=== PATIENT | female | born 1960 | race Caucasian/White ===

== ENCOUNTER → 2016-05-13 | Outpatient (CLI) | payer OTHER ==
[~2016-05-13] MED LIST: IOPAMIDOL (ISOVUE-300) 50 ML VIAL IV ONE
--- NOTE | 2016-05-13 17:06 | CT ---
CT Scan of the Chest (With Contrast) Clinical Indications: History of ovarian cancer in a 55-year-old female who has completed chemotherap y several months ago. New onset of left-sided chest pain. Patient's most recent studies from [facility] are not available for comparison at this time. Technique: During power injection of 90 mL Isovue intravenously, a spiral acquisition was performed through the chest. This contrast dose was employed for evaluation of the chest, abdomen and pelvis. A xial images are obtained at 1.25 mm thickness. The examination is reviewed on the workstation at [facility] window/level settings. Sagittal and coronal reformations are performed. Dose reduction technique s were utilized for this examination. Findings: The lungs are clear. Incidentally, there is a small pneumatocele involving the left lower l obe which is unchanged from prior CT scan of the abdomen October 25, 2013. Heart size and pulmonary vasc ularity are normal. There is no pleural or pericardial effusion. There are no masses in the lungs, me diastinum, and pleura. No pneumothorax is seen. The great vessels are normal. The thoracic aorta has a normal contour. No aggressive osseous lesions are identified. Impression: Negative contrast enhanced CT scan of the chest. CT Scan of the Abdomen and Pelvis With Contrast Clinical Indications: History of ovarian cancer in a 55-year-old female who has completed chemotherap y several months ago. New onset of left-sided chest pain. Patient's most recent studies from [facility] are not available for comparison at this time. Technique: Multidetector CT images of the abdomen and pelvis were obtained following the uneventful i ntravenous administration of 90 mL Isovue-300 contrast. Also delayed images were obtained through the liver. Dilute oral contrast was also administered. Axial images are obtained at 1.25 mm thickness. T he examination is reviewed on the workstation at multiple window/level settings. Sagittal and coronal reformations are performed. Dose reduction techniques were utilized for this examination. Comparison to the prior CT of the abdomen and pelvis October 25, 2013. Abdomen: Liver: On portal venous imaging, there is a 12 mm nodular opacity in the right hepatic lobe unchanged in size from the 2014 study. On delayed imaging the abnormality is not definitely visualized. There does appear to be possible nodular enhancement on the periphery of this lesion and this most likely r epresents a hemangioma. This could be confirmed with comparison with more recent studies or sonograph ic assessment. The liver is otherwise negative. Biliary system: Normal gallbladder. No intra or extrahepatic dilatation. Spleen: Normal. Pancreas: Normal. Adrenals: Normal. Kidneys: No obstruction or solid masses. Abdominal Aorta: No aneurysm. No bowel obstruction, ascites, or retroperitoneal lymphadenopathy. CT Pelvis Findings: There has been interval resection of the large pelvic mass. No residual mass is i dentified. There is no ascites seen. Postoperative changes of hysterectomy and bilateral oophorectomy . No ascites or adenopathy is identified. A normal appendix is visualized. No aggressive osseous lesi on is seen to suggest metastatic disease. Impression: 1. Negative for residual mass or evidence for distant metastatic disease. 2. Suspect hepatic hemangioma with further evaluation recommended as clinically directed. Comparison with the patient's more recent studies from [facility] would be of value.
== END ==
LOC: FIMAGING 12:57
PROVIDERS: ATTEND Obstetrics & Gynecology Gynecologic Oncology
DX: R07.89 Other chest pain (principal); J98.4 Other disorders of lung; Z85.43 Personal history of malignant neoplasm of ovary
CPT/HCPCS: Q9967

== ENCOUNTER → 2016-05-13 | Outpatient (CLI) | payer OTHER ==
--- NOTE | 2016-05-14 11:07 | CT ---
CT Scan of the Chest (With Contrast) Clinical Indications: History of ovarian cancer in a 55-year-old female who has completed chemotherapy several months ago. New onset of left-sided chest pain. Patient's most recent studies from [facility] are not available for comparison at this time. Technique: During power injection of 90 mL Isovue intravenously, a spiral acquisition was performed through the chest. This contrast dose was employed for evaluation of the chest, abdomen and pelvis. Axial images are obtained at 1.25 mm thickness. The examination is reviewed on the workstation at multiple window/level settings. Sagittal and coronal reformations are performed. Dose reduction techniques were utilized for this examination. Findings: The lungs are clear. Incidentally, there is a small pneumatocele involving the left lower lobe which is unchanged from prior CT scan of the abdomen October 25, 2013. Heart size and pulmonary vascularity are normal. There is no pleural or pericardial effusion. There are no masses in the lungs, mediastinum, and pleura. No pneumothorax is seen. The great vessels are normal. The thoracic aorta has a normal contour. No aggressive osseous lesions are identified. Impression: Negative contrast enhanced CT scan of the chest. CT Scan of the Abdomen and Pelvis With Contrast Clinical Indications: History of ovarian cancer in a 55-year-old female who has completed chemotherapy several months ago. New onset of left-sided chest pain. Patient's most recent studies from [facility] are not available for comparison at this time. Technique: Multidetector CT images of the abdomen and pelvis were obtained following the uneventful intravenous administration of 90 mL Isovue-300 contrast. Also delayed images were obtained through the liver. Dilute oral contrast was also administered. Axial images are obtained at 1.25 mm thickness. The examination is reviewed on the workstation at multiple window/level settings. Sagittal and coronal reformations are performed. Dose reduction techniques were utilized for this examination. Comparison to the prior CT of the abdomen and pelvis October 25, 2013. Abdomen: Liver: On portal venous imaging, there is a 12 mm nodular opacity in the right hepatic lobe unchanged in size from the 2013 study. On delayed imaging the abnormality is not definitely visualized. There does appear to be possible nodular enhancement on the periphery of this lesion and this most likely represents a hemangioma. This could be confirmed with comparison with more recent studies or sonographic assessment. The liver is otherwise negative. Biliary system: Normal gallbladder. No intra or extrahepatic dilatation. Spleen: Normal. Pancreas: Normal. Adrenals: Normal. Kidneys: No obstruction or solid masses. Abdominal Aorta: No aneurysm. No bowel obstruction, ascites, or retroperitoneal lymphadenopathy. CT Pelvis Findings: There has been interval resection of the large pelvic mass. No residual mass is identified. There is no ascites seen. Postoperative changes of hysterectomy and bilateral oophorectomy. No ascites or adenopathy is identified. A normal appendix is visualized. No aggressive osseous lesion is seen to suggest metastatic disease. Impression: 1. Negative for residual mass or evidence for distant metastatic disease. 2. Suspect hepatic hemangioma with further evaluation recommended as clinically directed. Comparison with the patient's more recent studies from [facility] would be of value. MTDD
== END ==
LOC: FIMAGING 13:07
PROVIDERS: ATTEND Obstetrics & Gynecology Gynecologic Oncology
DX: R07.89 Other chest pain (principal); J98.4 Other disorders of lung; Z85.43 Personal history of malignant neoplasm of ovary

== ENCOUNTER → 2017-04-06 | Outpatient (CLI) | payer OTHER | LOC: FIMAGING 09:33 | PROVIDERS: ATTEND Obstetrics & Gynecology Gynecologic Oncology | DX: Z12.31 Encounter for screening mammogram for malignant neoplasm of breast (principal) | CPT/HCPCS: G0202 ==

== ENCOUNTER → 2018-04-06 | Outpatient (CLI) | payer OTHER | LOC: BMCIMAGING 17:05 | PROVIDERS: ATTEND Family Medicine | DX: S92.351A Displaced fracture of fifth metatarsal bone, right foot, initial encounter for closed fracture (principal) ==

== ENCOUNTER → 2018-04-28 | Outpatient (CLI) | payer OTHER | LOC: BMCIMAGING 12:58 | PROVIDERS: ATTEND Podiatrist Foot & Ankle Surgery | DX: S92.344A Nondisplaced fracture of fourth metatarsal bone, right foot, initial encounter for closed fracture (principal) ==

== ENCOUNTER → 2018-05-12 | Outpatient (CLI) | payer OTHER | LOC: BMCIMAGING 13:25 | PROVIDERS: ATTEND Podiatrist Foot & Ankle Surgery | DX: S92.351D Displaced fracture of fifth metatarsal bone, right foot, subsequent encounter for fracture with routine healing (principal) ==

== ENCOUNTER → 2018-06-30 | Outpatient (CLI) | payer OTHER | LOC: FIMAGING 14:22 ==

== ENCOUNTER → 2018-08-02 | Outpatient (CLI) | payer OTHER | LOC: FIMAGING 11:50 | PROVIDERS: ATTEND Obstetrics & Gynecology Gynecologic Oncology | DX: Z12.31 Encounter for screening mammogram for malignant neoplasm of breast (principal) ==